=== PATIENT | male | born 1960 ===

== ENCOUNTER 2021-06-06 14:20 | Outpatient (CLI) | payer OTHER, SELFPAY ==
--- NOTE | 2021-06-06 14:00 | DI.RAD_ITS ---
Exam(s) XR WRIST RT COMPL NAVICULAR EXAM: XR WRIST RT COMPL NAVICULAR CLINICAL HISTORY: persistent wrist pain, post fall 05/01/21 M25.531 PAIN RT WRIST M25.431. TECHNIQUE: 2D digital imaging was performed. COMPARISON: No exams were available for comparison FINDINGS: No evidence fracture or carpal dislocation. No significant ulnar variance. Scaphoid view reveals no fracture the scaphoid-navicular bone and normal scapholunate distance. IMPRESSION: No fractures evident. If pain persists then follow-up MRI can be performed. DATA REPOSITORY: RADIATION DOSE DELIVERED:
== END 2021-06-06 14:40 ==
PROVIDERS: PCP Family Medicine; Visit Provider Nurse Practitioner Family
DX: M25.531 Pain in right wrist (principal); M25.431 Effusion, right wrist
CPT/HCPCS: 73110

== ENCOUNTER 2021-08-05 11:10 | Outpatient (CLI) | payer OTHER, SELFPAY ==
--- NOTE | 2021-08-05 10:00 | DI.RAD_ITS ---
Exam(s) XR WRIST RT COMPL NAVICULAR EXAM: XR WRIST RT COMPL NAVICULAR CLINICAL HISTORY: pain in wrist. TECHNIQUE: 2D digital imaging was performed. COMPARISON: CR XR WRIST RT COMPL NAVICULAR from 06/06/2021 FINDINGS: No evidence of acute fracture nor dislocation nor significant ulnar variance. 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 Scapholunate distance remains symone l. Signature IMPRESSION: DATA REPOSITORY: RADIATION DOSE DELIVERED:
== END 2021-08-05 11:11 | disposition home or self-care (01) ==
LOC: DIORS 11:13
PROVIDERS: PCP Family Medicine; Referring Provider Family Medicine; Visit Provider Physician Assistant Surgical
DX: M25.431 Effusion, right wrist (principal); M25.531 Pain in right wrist
CPT/HCPCS: 73110